=== PATIENT | male | born 1950 | race Caucasian/White ===

== ENCOUNTER → 2016-08-10 | Outpatient (CLI) | payer MEDICARE, OTHER ==
[~2016-08-10] MED LIST: ASA325 MG PO; B-12 INJ1000 MCG/M SQ; BACITRACIN--O.0.9 GM TP; COLACE-DPS100 MG PO; COZAAR100 MG PO; CRESTOR40 MG PO; CYMBALTA DPS60 MG PO; DEBROX OTIC15 ML AU; DESYREL-DPS50 MG PO; GABAPENTIN400 MG PO; GLUCOPHAGE-DPS500 MG PO; GLUCOPHAGE1000 MG PO; GLUCOSE4 GM PO; HYDROCORTISONE PO; HYDRODIURIL-DPS25 MG PO; IBUPROFEN200 M1 PO; LANTUS100 UNITS/ SQ; METHYLPHENIDATE PO; MICRO-K DPS10 MEQ PO; MINOCIN DPS100 MG PO; MIRALAX PACKET17 GM PO; NEURONTIN DPS300 MG PO; NOVOLOG FL100 UNIT/1 SQ; OXACILLIN2 GM/50 ML IV; OXY IR DPS5 MG PO; PERCOCET 7.5 DP1 TAB PO; PLAVIX75 MG PO; PROTONIX40 MG PO; RESTORIL DPS15 MG PO; RIFAMPIN300 MG PO; ROBAXIN-DPS500 MG PO; SENOKOT S1 TAB PO; TENORMIN DPS50 MG PO; TYLENOL DPS325 MG PO; VALIUM-DPS10 MG PO; VITAMIN D-32000 UNI1 PO; WELLBUTRIN XL300 MG PO; ZANTAC DPS150 MG PO; ZOFRAN8 MG PO; [UNRECOGNIZED DRUG - OTHER] PO
== END | disposition home or self-care (01) ==
LOC: PTH.S 08:59
DX: Z01.818 Encounter for other preprocedural examination (principal); E11.9 Type 2 diabetes mellitus without complications

== ENCOUNTER 2016-08-21 05:36 | Inpatient (IN) | payer MEDICARE, OTHER ==
[~2016-08-21] VITALS: Ht 172.7 cm; Wt 97.5 kg
--- NOTE | ~2016-08-21 | HP ---
ADMIT: 08/21/2016 RM/LOC: W.01 [facility] MR#: [id number] [address] JT, TALAT V [address] [place] [address] Pre-OP History and Physical SEX: M AGE: 66 : 1950 DATE OF SERVICE: CHIEF COMPLAINT: Hip pain. HISTORY OF PRESENT ILLNESS: The patient is a 66-year-old male with long- standing history of left hip pain that limits his activity. He has pain in the groin. He has failed conservative care. He is now being admitted for left total hip arthroplasty. PAST MEDICAL HISTORY: Include sleep apnea, hypertension, fibromyalgia, anxiety, depression, diabetes, hyperlipidemia, diabetic neuropathy, restless legs, and history of CVA. PAST SURGICAL HISTORY: Include a lumbar laminectomy, knee arthroscopy, right hip replacement, and hernia repair. MEDICATIONS: Include: 1. Potassium. 2. Methylphenidate. 3. Crestor. 4. Gabapentin. 5. Temazepam. 6. Bupropion. 7. Hydrochlorothiazide. 8. Venlafaxine. 9. Plavix. 10.Metformin. 11.Atenolol. 12.Insulin. 13.Lovastatin. ALLERGIES: SIMVASTATIN AND ROPINIROLE. SOCIAL HISTORY: Denies any significant tobacco or alcohol use. REVIEW OF SYSTEMS: Negative. PHYSICAL EXAMINATION: GENERAL: Very healthy appearing male MUSCULOSKELETAL: Walks antalgic gait on the left lower extremity. Pain is located in the groin. We can internally rotate to 20, externally rotate to ADMIT: 08/21/2016 RM/LOC: W.01 [facility] MR#: [id number] [address] JT, TALAT [address] [facility] [place] [address] Pre-OP History and Physical SEX: M AGE: 66 : 1950 30, flex to 100, produces pain and symptoms. Legs otherwise neurovascularly intact. DIAGNOSTIC DATA: X-rays AP and lateral shows advanced left hip arthritis, no joint space remaining. IMPRESSION: Advanced left hip degenerative joint disease. PLAN: We talked about different options. Failed conservative care. Plan on doing a left anterior total hip arthroplasty. He is aware of the risks, benefits, and options and agreed to proceed. He has been seen and cleared from a medical standpoint. Raad Herring MD/ florina JOB #: [id number] CC: Raad Herring, Attending Physician Valeriano Martinez, Family Physician
--- NOTE | ~2016-08-21 | ECH ---
Transthoracic Echocardiography Report (TTE) Demographics Patient Name TALAT WATERS V Date of Study 08/23/2016 Patient Number [id number] Visit Number [id number] Date of 1950 Room Number 518 Accession Number [id number] Gender Male Age 66 year(s) Referring Juan Mendez Electrician Control Equipment Ama Maurice [facility] Physician MD Marcy Osborne MD Physician Interpreting [facility] Romie Hall Final Inspector And Tester Physician MD Supervising Ordering Physician Juan Mendez MD, MD/[facility] Nurse Stress Contaminated Land Consultant Conclusions Summary Technically difficult exam to perform due to patient S/P left hip surgery, supine position. Images obtained are fair. The estimated left ventricular ejection fraction is 60-65%. Mild septal left ventricular hypertrophy. Normal RV size and systolic function. The aortic root appears mildly dilated. The maximum diameter measures 3.92 cm at the sinus of valsalva. Procedure Type of Study TTE procedure:Echo Complete SF. Procedure Date Date: 08/23/2016 Start: 08:26 AM Technical Quality: Limited visualization due to patient immobility. Indications:Hypotension. Appropriate Use Criteria: 9 Height: 68 inches Weight: 198 pounds BSA: 2.04 m Rhythm: Within normal limits HR: 92 bpm BP: 107/39 mmHg M-Mode/2D Measurements LV Diastolic Dimension: 3.89 cm LV Systolic Dimension: 2.21 cm LV Septum Diastolic: 1.29 cm LV PW Diastolic: 1 cm AO Root Dimension: 3.18 cm Cardiac Output: 6.91 l/min LA Dimension: 3.09 cm Cardiac Index: 3.39 l/min*m RV Diastolic Dimension: 3.14 cm LVOT: 2.45 cm LVOT VTI: 15.94 cm LV Stroke volume: 75.11 ml RV Base: 3.17 cm LV Stroke volume index: 36.82 ml/m RV Mid: 1.6 cm RV Length: 7.3 cm Doppler Measurements AV Peak Velocity: 1.33 m/s MV Peak E-Wave: 0.9 m/s AV Peak Gradient: 7.08 mmHg MV Peak A-Wave: 0.47 m/s AV Mean Gradient: 4.38 mmHg MV E/A Ratio: 1.92 LVOT Peak Velocity: 0.88 m/s AV Area (Continuity):3.16 cm PV Peak Velocity: 1.38 m/s PV Peak Gradient: 7.63 mmHg RA Area: 14.2 cm Findings Left Ventricle The left ventricle is normal in size . Mild septal left ventricular hypertrophy. Diastolic assessment reveals normal relaxation. Right Ventricle Normal right ventricle structure and function. Left Atrium Normal left atrial size. Right Atrium Normal right atrial size. Mitral Valve Normal mitral valve structure and function. Aortic Valve Normal aortic valve structure and function. Tricuspid Valve Normal tricuspid valve structure and function. Pulmonic Valve Normal pulmonic valve structure and function. Pericardial Effusion No evidence of pericardial effusion. Miscellaneous The aortic root appears mildly dilated. The maximum diameter measures 3.92 cm at the sinus of valsalva. Pleural Effusion No evidence of pleural effusion. Contractility Score LV regional wall motion:(0-Non visualized 1-Normal 2-Hypokinesis 3-Akinesis 4-Dyskinesis 5-Aneurysm) Signature
[~2016-08-21 05:36] MED LIST changes: -ASA325 MG PO; -DESYREL-DPS50 MG PO; -GLUCOPHAGE-DPS500 MG PO; -HYDROCORTISONE PO; -MIRALAX PACKET17 GM PO; -OXY IR DPS5 MG PO; -PROTONIX40 MG PO; -SENOKOT S1 TAB PO; -TYLENOL DPS325 MG PO
[2016-08-25] MEDS ORDERED: ASA325 MG PO (10:10)
[2016-08-25] MEDS ORDERED: PROTONIX40 MG PO (10:12)
[2016-08-25] MEDS ORDERED: SENOKOT S1 TAB PO (10:13)
[2016-08-25] MEDS ORDERED: GLUCOPHAGE-DPS500 MG PO (10:14)
[2016-08-25] MEDS ORDERED: DESYREL-DPS50 MG PO (10:17)
[2016-08-25] MEDS ORDERED: TYLENOL DPS325 MG PO (10:18)
[2016-08-25] MEDS ORDERED: MIRALAX PACKET17 GM PO (10:18)
[2016-08-25] MEDS ORDERED: OXY IR DPS5 MG PO (10:20)
[2016-08-25] MEDS ORDERED: HYDROCORTISONE PO (10:22)
--- NOTE | 2016-09-05 09:00 | CO ---
ADMIT: 08/21/2016 RM/LOC: 518 [facility] MR#: [id number] [id number] [address] TALAT WATERS [address] [place] [address] Consultation SEX: M AGE: 66 : 1950 DATE OF CONSULTATION: 08/21/2016 ATTENDING PHYSICIAN: Raad Herring CONSULTING PHYSICIAN: Valeriano Martinez MD REASON FOR CONSULTATION: Postoperative hypotension. HISTORY OF PRESENT ILLNESS: Mr. Talat Waters is a 66-year-old man with past medical history significant for hypertension, insulin-dependent type 2 diabetes, peripheral neuropathy, history of osteoarthritis, depression, history of CVA, and obstructive sleep apnea, who presented to [facility] today for an elective left total hip arthroplasty. In the postoperative period, he has been noted to have blood pressures in the 70s over 40s to 50s. The patient states that he was in his usual state of health until about three weeks ago when he noticed that he has been a little bit more dizzy. He states that this typically happens when he changes positions such as pivoting or turning. He does have some dizziness when he goes from the sitting to the standing position as well. He tells me that he has looked up his medications and recognized that the hydrochlorothiazide could cause hypotension. He discontinued the hydrochlorothiazide approximately two weeks ago and has been taking in atenolol 50 mg as well as Cozaar 100 mg daily. He states that this has not significantly changed his dizziness. He notes that he did have a change in medication recently to include use of Victoza. He says that since starting the Victoza, he has had a decrease in appetite and decrease in oral intake as well. He tells me that he used to drink approximately two to three glasses of water daily as well as two to three glasses of wine. He has not been consuming the alcohol over the last two weeks and typically has been drinking only one beer once a week. He tells me that this morning prior to his operation, he did take the and the atenolol and the Cozaar. He denies any chest pain or shortness of breath. He denies any weakness anywhere that is new for him. He has not had any changes to his hearing or changes to his vision lately. He does tell me that he has been waking up with headaches more recently. He tells me that this is in the setting of him not using his CPAP for his obstructive sleep apnea. He tells me that the headaches are typically mild and he only has been taking one ibuprofen about once a week. He denies any other neurologic deficits including slurred speech or trouble obtaining words when speaking. He denies any weakness. PAST MEDICAL HISTORY: 1. Hypertension, essential. 2. Insulin-dependent type 2 diabetes. 3. History of CVA. 4. Depression and attention disorder. 5. Osteoarthritis. 6. Esophageal reflux. ADMIT: 08/21/2016 RM/LOC: 518 [facility] MR#: [id number] [address] [place] [id number] TALAT WATERS [address] [place] [address] Consultation SEX: M AGE: 66 : 1950 PAST SURGICAL HISTORY: He has a history of multiple laminectomies including lumbar and cervical. He has had a diskectomy as well. He has had an inguinal hernia repair and most recently had a right total hip arthroplasty back in 2009. Today, he had a left total hip arthroplasty. HOME MEDICATIONS: 1. Atenolol. 2. Losartan 100. 3. Plavix. 4. Gabapentin. 5. Wellbutrin. 6. Vitamin D. 7. Ibuprofen. 8. Glargine 60 units nightly. 9. Victoza. 10.Metformin. 11.Methocarbamol. 12.Zantac. 13.Rosuvastatin. 14.Temazepam. 15.Trazodone. 16.Potassium chloride. ALLERGIES: ALLERGIC TO INSULIN ASPART, SIMVASTATIN CAUSING MUSCLE PAIN, POISON IV AND POISON SUMAC EXTRACT, WELL ROPINIROLE WHICH CAUSED DEPRESSION. FAMILY HISTORY: Significant for COPD in his mother and heart disease in his father. He says his father had a bypass and then passed from congestive heart failure. He has siblings who passed from heart disease as well as drug addiction. His children are healthy. SOCIAL HISTORY: He used tobacco for two years when he was in the service and quit in 1969. He states that he is typically only consuming one beer once a week at this point in time. Previously consumed 2-3 glasses of wine nightly in the past. He denies any illicit drugs. He is a retired RN. He lives in [place] with his , and he enjoys fishing and cycling in his spare time. PHYSICAL EXAMINATION: VITAL SIGNS: While in the room, the patient is afebrile. His heart rate is 66, his blood pressure is 94/53, and he is respirating at 18 per minute. He is saturating well on 2 L nasal cannula. GENERAL: He is alert and oriented. He is sitting up in the hospital bed at about 30-degree angle. He does not appear to be in any distress. HEENT: Normocephalic, atraumatic. Hearing is decreased bilaterally, but intact. He has dry mucous membranes. His nose is midline without any drainage. Extraocular eye movements are intact. He has normal pink conjunctiva and normal white sclerae. ADMIT: 08/21/2016 RM/LOC: 518 [facility] MR#: [id number] [address] [place] [id number] TALAT WATERS V [address] [place] [address] Consultation SEX: M AGE: 66 : 1950 LUNGS: Clear to auscultation bilaterally. No wheezes, rubs, or rhonchi noted. HEART: Regular rate and rhythm. No murmurs, rubs, or gallops. ABDOMEN: Soft and nontender. He does have hypoactive bowel sounds. EXTREMITIES: Warm and well perfused. Pulses are symmetric in the wrists as well as the posterior tibialis. NEUROLOGIC: He is alert and oriented. He moves all extremities without difficulties. His cranial nerves are intact. He has equal sensation of his extremities. His lower extremities were not tested for strength given his recent surgery. He can move his feet and toes without difficulties. He does not have any facial droop. He does not have any slurred speech. PSYCH: He has an appropriate mood and his affect is mood-congruent. LABS AND IMAGING: He has a white count of 5.2 with normal differential; his hemoglobin is 11.2, this is down from his baseline of 13.8 a couple weeks ago; his platelets are 173. For his BMP; he has normal electrolytes with CO2 of 27, his creatinine is 1.1, his BUN is 16, blood sugar is 172, his total protein is 5.7, and his albumin is 3.3. There are no imaging studies at this point in time. He has an EKG that demonstrates a sinus rhythm with prolonged LA interval, but no dropped beats. He does not have any ST elevations or depressions. ASSESSMENT AND PLAN: Mr. Waters is a 66-year-old man with past medical history significant for hypertension, diabetes type 2, osteoarthritis, and cerebrovascular accident. He was hospitalized total electively for a left total hip arthroplasty. His postoperative period has been complicated by hypotension with blood pressures in the 70s over 40s. Internal Medicine was consulted for his hypotension. Plan for his hypotension: His hypotension is mostly likely multifactorial at this point in time, he endorses having decreased his oral intake recently in the setting of the Victoza that gives him a poor appetite. He also has been having lower blood pressures at home with them running in the 90s systolic. He recently discontinued his hydrochlorothiazide, but has continued to take his atenolol 50 and his losartan at 100. He did take the Cozaar 100 mg today prior to his surgery. His blood pressure prior to surgery was noted to be 118/60. We suspected that his recent use of anesthesia has also contributed to his relative hypotension. It is expected that these medications will wear off and that his blood pressure will hopefully return back to a normal range. He has received 1 L of normal saline at this point in time, and his blood pressures have improved to 94/53. At this point in time, it is advisable to continue to provide him with fluids. Would hold the Cozaar and atenolol at ADMIT: 08/21/2016 RM/LOC: 518 [facility] MR#: [id number] [address] [address] TALAT WATERS [facility] [place] [address] Consultation SEX: M AGE: 66 : 1950 this point in time as well. Given the fact that he does not have a significant heart history, could consider decreasing the atenolol as well as the losartan. The losartan is for his blood pressure, but also renal protective properties in the setting of him having both hypertension and type 2 diabetes. We will obtain a repeat ECG at this point in time to evaluate for any arrhythmias which may lead to his hypotension. If he has chest pain, then a full cardiac workup should be initiated. If he has focal neuro deficits, it would not be inappropriate to order a CT of his head. We will also order a random cortisol level to further evaluate at this point in time. We will continue to follow along. Please do not hesitate to contact us with any further questions or concerns. Emiliana Pérez MD Resident / Valeriano Martinez MD / florina JOB #: [id number] CC: Raad Herring, Attending Physician Valeriano Martinez, Family Physician
--- NOTE | 2016-09-05 21:12 | OR ---
ADMIT: 08/21/2016 RM/LOC: 518 [facility] MR#: [id number] [address] [address] TALAT WATERS [address] [place] [address] Operative/Delivery Room Report SEX: M AGE: 66 : 1950 SURGERY DATE: 08/21/2016 SURGEON: Raad Herring MD CONSULTING TECHNICAL MANAGER: Uriel Jorge PA-C PREOPERATIVE DIAGNOSIS: Left hip degenerative joint disease. POSTOPERATIVE DIAGNOSIS: Left hip degenerative joint disease. PROCEDURES: 1. Left anterior total hip arthroplasty. 2. Intra-articular Exparel block. ANESTHESIA: Spinal. COMPLICATIONS: None. ESTIMATED BLOOD LOSS: 200 mL. COMPONENTS: 1. A 60 mm Gription [place] cup. 2. A neutral 36 mm AltrX liner. 3. A 14 mm standard offset Corail stem. 4. An 8.5 x 36 mm ceramic head. DESCRIPTION OF PROCEDURE: The patient was taken to the operating room. The correct hip was identified and marked in the preop holding area. The preoperative leg lengths were documented. The patient received a spinal anesthetic. At that point, the patient had traction boots applied. The patient was placed on the [facility] operative table. A perfect fluoroscopic AP pelvis was obtained along with a perfect AP of the operative hip and printed for preoperative templating purposes. At that point, the left hip was prepped and draped in a standard fashion and an anterior approach was performed. An incision was made lateral and inferior to the anterior superior iliac spine extending distally. Dissection was carried through subcutaneous tissue down to the tensor fascia. The fibers of the tensor fascia were identified in oblique fashion. The tensor fascia was then opened up along its muscle fibers. An Allis clamp was placed on the anterior fascial border. The tensor muscle itself was then swept off with blunt dissection and retracted posteriorly. At that point, the rectus was elevated off the anterior hip capsule. The lateral circumflex vessels were identified and cauterized. A Cobra retractor was placed above the superior femoral neck to retract the tensor posteriorly. The rest of the rectus was elevated off the anterior hip capsule and a second retractor was placed around the medial femoral neck. An L-shaped capsulotomy was performed through the hip capsule down to the intertrochanteric line and extended along the intertrochanteric line to the level of the lesser trochanter. Tag stitches were placed in the medial and lateral border of the hip capsule. We also released the superior hip capsule ADMIT: 08/21/2016 RM/LOC: 518 [facility] MR#: [id number] [address] [address] [facility] [place] [address] [place] [address] Operative/Delivery Room Report SEX: M AGE: 66 : 1950 out of the trochanteric shoulder region. At that point, we placed our Cobra retractors in an intra-articular fashion for improved exposure to complete our capsular releases intra-articularly. A femoral neck cut was then made based on templating using the trochanteric shoulder as a bony landmark. We then externally rotated the hip 20 degrees for improved exposure and removed the femoral head from the acetabulum with no undue difficulty. Once the femoral head was removed, we again completed our capsular release around the inferior femoral neck to the level of lesser trochanter, released the superior capsule off the greater trochanteric shoulder in its entirety. We then placed slight traction on the femur in 20 degrees external rotation and placed a blunt-tip Cobra retractor over the anterior acetabular border. A second blunt Cobra was placed around the posterior acetabular border. All the remaining labrum was excised and an episiotomy performed to the inferior capsule to improve exposure. We cauterized the fovea and removed any remaining tissue in the depth of the acetabulum. We sequentially reamed the acetabulum under direct visualization up to a 59 mm size reamer. We elected to use a 60 mm size acetabular component. We put the acetabular component on a curved chancery clerk and placed it within the depths of the acetabulum. At that point we removed all retractors; brought in fluoroscopy; and again obtained a perfect AP of the pelvis followed by a perfect AP of the hip. Under fluoroscopic guidance, we impacted the acetabular component in approximately 45 degrees of inclination and 20 degrees of anteversion. Two acetabular screws were now placed with good purchase and no supplemental screws were required. Any peripheral osteophytes were circumferentially removed around the acetabular component. A hole eliminator was placed in the acetabular component and a neutral 36-mm AltrX liner was impacted within the acetabular component. A partial intra-articular block with Exparel was performed at this point in time. Once our acetabular preparation was completed, all the acetabular retractors were removed. We then exposed the femur by rotating it into neutral position and taking all traction off the femur. A femoral elevating hook was placed posterior to the trochanteric ridge. The foot was dropped down to 45 degrees and the leg maximally externally rotated no undue tension. We made sure our inferior capsular release was complete and placed a #1 retractor over the tip of the trochanter. Any remaining capsule was released off the tip of the trochanter and the piriformis tendon and a conjoined tendon were also released for exposure. At that point, you could feel the femur give, and we were able to elevate it up and out of the wound. The femur was externally rotated to approximately 120 degrees and the foot dropped to the floor as the leg was adducted. The trochanteric elevating hook was manually pulled in the anterior lateral direction as the elevating bar was raised to support it. At that point, we had excellent femoral exposure. A Sheldon retractor was placed over the tip of the trochanter and a femoral neck retractor around the medial calcar region to improve exposure. The proximal femur was opened with a box osteotome and a canal finder was used to identify the femoral canal. The proximal femur was sequentially broached up to a 14 mm Corail broach. We did overream the distal canal to be sure we did not have a distal femoral fit. At that point, we left the broach in the canal and calcar planed the neck. We then reduced the hip with a standard off-set femoral neck ADMIT: 08/21/2016 RM/LOC: 518 [facility] MR#: [id number] [address] [address] TALAT WATERS [address] [place] [address] Operative/Delivery Room Report SEX: M AGE: 66 : 1950 and a 8.5 X 36-mm head. All the retractors and femoral hook were removed. Using manual traction, we were able to reduce the hip into the acetabulum with no undue difficulty. A perfect fluoroscopic AP of the pelvis followed by a perfect AP of the hip was obtained and appropriate leg length and offset were confirmed. We replaced our femoral elevating hook posterior to the trochanter. A bone hook and manual traction were used to dislocate the hip, again externally rotating the femur in its entirety as the foot was dropped to the floor and leg adducted. We removed the trial components, replaced a Sheldon retractor, and a femoral neck retractor. The broach was removed and the appropriate real components opened. We then impacted a size 14 mm standard offset Corail stem down the femoral canal with excellent press-fit. We impacted a +8.5 X 36 mm ceramic head on the trunnion. All retractors were removed, using manual traction the hip was reduced, and again was found to be stable. A final fluoroscopic AP pelvis and AP hip was obtained to confirm appropriate leg length, offset, and component positioning. We then irrigated out the wounds thoroughly and repaired the anterior capsular structures with #5 Ti-Cron. Our intra-articular Exparel block was completed including all soft tissues. The tensor fascia was repaired with a running and interrupted 0 Vicryl suture. We closed subQ with 2-0 Vicryl and ran a subcuticular Monocryl stitch. A Prineo hip wound dressing was applied and sterile dressings applied. The patient was taken off the HANA table, transferred to a standard OR bed, and taken to the recovery room in stable condition with no complications. Raad Herring MD/ florina JOB #: [id number] CC: Raad Herring, Attending Physician Valeriano Martinez, Family Physician
--- NOTE | 2016-09-08 07:33 | DS ---
ADMIT: 08/21/2016 RM/LOC: [facility] [id number] [id number] [address] [id number] [address] [place] [address] General Discharge Summary SEX: M AGE: 66 : 1950 ADMISSION DATE: 08/21/2016 DISCHARGE DATE: 08/24/2016 REASON FOR ADMISSION: Elective left total hip arthroplasty after failing conservative care. PREOPERATIVE DIAGNOSIS: Left hip degenerative joint disease. POSTOPERATIVE DIAGNOSIS: Left hip degenerative joint disease. PROCEDURE PERFORMED: Left anterior total hip arthroplasty. SURGEON: Raad Herring MD. MAIL SUPERINTENDENT: Uriel Jorge PA-C ANESTHESIA: Spinal. COMPLICATIONS: None. ESTIMATED BLOOD LOSS: 30 mL. ACTIVE MEDICAL PROBLEMS: Sleep apnea, hypertension, fibromyalgia, anxiety, depression, diabetes, hyperlipidemia, diabetic neuropathy, restless legs syndrome, and history of CVA. HOSPITAL COURSE: The patient was admitted on 08/21/2016, for elective left total hip arthroplasty done successfully by Dr. Herring without any complications. The patient tolerated the procedure well. Postoperatively, he did suffer from some hypotension and was treated by Dr. Martinez with hydrocortisone 100 mg IV every 8 hours as well as discontinuing the Ultram prescribed for pain. His pain was well controlled postoperatively. After discontinuing the tramadol, the patient's blood pressure returned to normal and was 136/64 on 08/24/2016. As expected, his hemoglobin did drop to 8.2 on 08/24/2016, but he remained hemodynamically stable and did not require blood transfusion. He was safe and stable and ready to be discharged home with plans for outpatient physical therapy exercises at home. DISCHARGE MEDICATIONS: 1. Aspirin 325 mg at bedtime for 31 days. 2. Bupropion 300 mg everyday. 3. Clopidogrel 75 mg every morning. 4. Vitamin D3, 2000 units in the evening. 5. Gabapentin 1200 mg three times daily. 6. Protonix 40 mg at bedtime for 31 days. 7. Senokot 2 tablets at bedtime. 8. Metformin 1000 mg twice daily. 9. Glucose 4 g daily as needed for low blood sugar. 10.Methocarbamol 500 mg in the evening. ADMIT: 08/21/2016 RM/LOC: [address] [facility] MR#: [id number] [address] [address] [address], [address] [place] [address] General Discharge Summary SEX: M AGE: 66 : 1950 11.Potassium chloride 10 mEq in the evening. 12.Rosuvastatin 20 mg in the evening. 13.Temazepam 15 mg at bedtime. 14.Trazodone 50 mg, 30 minutes before bedtime. 15.Lantus 70 units in the evening. 16.MiraLax 17 g everyday as needed. 17.Tylenol 650 mg four times daily. 18.Ranitidine 150 mg two tablets daily as needed. 19.Carbamide peroxide 2 drops Sunday as needed for earwax. 20.Oxycodone IR 5 to 10 mg every 4 to 6 hours as needed for breakthrough pain. 21.Hydrocortisone 40 mg twice daily on 08/24/2016, then 20 mg twice daily from 08/25/2016 to 08/27/2016, then 10 mg twice daily from 08/28/2016 to 08/30/2016, and 10 mg everyday from 08/31/2016 until 09/06/2016. DISCHARGE INSTRUCTIONS: The patient was discharged home with plans for outpatient physical therapy exercises per anterior total hip arthroplasty protocol. Follow up in the orthopedic office in 2 weeks for wound check, in 6 weeks with x-ray. Follow up with primary care as directed. SAUL Bhagat / Raad Herring MD / florina JOB #: [id number] CC: Raad Herring MD, Attending Physician Valeriano Martinez MD, Family Physician
== END 2016-08-24 12:06 | disposition home or self-care (01) | DRG 470 ==
LOC: WOR 05:36 → 5MS 05:36
PROVIDERS: ADMIT Orthopaedic Surgery
PROC: 0SRB04A Replacement of Left Hip Joint with Ceramic on Polyethylene Synthetic Substitute, Uncemented, Open Approach (ICD-10-PCS; principal; 2016-08-21)
DX: M16.12 Unilateral primary osteoarthritis, left hip (principal); D61.818 Other pancytopenia; E11.42 Type 2 diabetes mellitus with diabetic polyneuropathy; E27.40 Unspecified adrenocortical insufficiency; I10 Essential (primary) hypertension; I95.81 Postprocedural hypotension; M79.7 Fibromyalgia; K21.9 Gastro-esophageal reflux disease without esophagitis; F41.9 Anxiety disorder, unspecified; G47.33 Obstructive sleep apnea (adult) (pediatric); F32.9 Major depressive disorder, single episode, unspecified; D64.9 Anemia, unspecified; E78.5 Hyperlipidemia, unspecified; G25.81 Restless legs syndrome; Z86.73 Personal history of transient ischemic attack (TIA), and cerebral infarction without residual deficits; Z96.641 Presence of right artificial hip joint; Z79.84 Long term (current) use of oral hypoglycemic drugs; Z79.4 Long term (current) use of insulin; Z82.49 Family history of ischemic heart disease and other diseases of the circulatory system; Z87.891 Personal history of nicotine dependence

== ENCOUNTER → 2016-08-29 | Outpatient (CLI) | payer OTHER ==
[~2016-08-29] MED LIST changes: +ASA325 MG PO; +DESYREL-DPS50 MG PO; +GLUCOPHAGE-DPS500 MG PO; +HYDROCORTISONE PO; +MIRALAX PACKET17 GM PO; +OXY IR DPS5 MG PO; +PROTONIX40 MG PO; +SENOKOT S1 TAB PO; +TYLENOL DPS325 MG PO
== END | disposition home or self-care (01) ==
LOC: RAD.S 14:23
DX: M79.89 Other specified soft tissue disorders (principal); M79.605 Pain in left leg; R60.0 Localized edema